=== PATIENT | male | born 1980 | race Caucasian/White ===

== ENCOUNTER 2020-10-15 15:54 | Observation (INO) | payer OTHER ==
[~2020-10-15] VITALS: Ht 203.2 cm; Wt 105.2 kg
--- NOTE | 2020-10-15 15:58 | NUR ---
FIRST EKG HAD A LOT OF ARTIFACT IN TRIAGE DUE TO PT BREATHING AND POSTIONING. WILL GET SECOND EKG IN ROOM WITH PT ON GURNEY
[2020-10-15] MEDS ORDERED: KETOROLAC 30 MG/1 ML IVPush ONE (16:30)
[2020-10-15] MEDS ORDERED: LORazepam 2 MG/ML, 1ML IVPush ONE (16:30)
[2020-10-15] MEDS ORDERED: ASPIRIN 81 MG TABLET CHEW PO ONE (16:30)
[2020-10-15] MEDS ORDERED: SODIUM CHLORIDE FLUSH 10ML SYR IVF ONE ×2 (16:30→19:30)
[2020-10-15 16:37] LABS: BASOPHILS % (AUTO) 1 % (0-1); EOSINOPHILS % (AUTO) 2 % (1-7); LYMPHOCYTES % (AUTO) 30 % (22-44); MD NO; MEAN CORPUSCULAR HEMOGLOBIN 32.2 pg (27.5-34.5); MEAN CORPUSCULAR HGB CONC 33.4 g/dL (33.2-36.2); MEAN PLATELET VOLUME 8.2 fL (7.4-10.4); MONOCYTES % (AUTO) 10 % (2-9); NEUTROPHILS % (AUTO) 58 % (42-75); PLATELET COUNT 373 x10^3/uL (130-400); RED BLOOD COUNT 5.43 x10^6/uL (4.38-5.82); RED CELL DISTRIBUTION WIDTH 13.7 % (9.4-14.8)
--- NOTE | 2020-10-15 16:40 | NUR ---
THIS IS A 40 YO M W/ C/O CP SINCE LAST NIGHT. PT REPORTS USING 1G KETAMINE YESTERDAY. NO CARDIAC HX. DENIES HOME MEDS. PIV STARTED, LABS DRAWN. PT CONNECTED TO ALL MONITORING. ADA PAGE.
--- NOTE | 2020-10-15 16:45 | NUR ---
PT STATING THAT "O2 MONITOR" IN HIS BODY IS READING LOW OXYGEN AND "HIGH NITROUS OXIDE" AND ALARM IS GOING OFF IN HIS BODY. UPON QUESTIONING FOR CLARIFICATION, PT DENIES CARBON MONIXIDE SENSOR IN HOME GOING OFF AND REPORTS NOT CHECKING O2 SAT AT HOME. ADA PAGE.
[2020-10-15] MEDS ORDERED: KETOROLAC 30 MG/1 ML ONE (16:47)
[2020-10-15 16:48] LABS: ALANINE AMINOTRANSFERASE 37 U/L (12-78); ALBUMIN 4.8 g/dL (3.4-5.0); ANION GAP 13 mmol/L (5-15); CALCIUM 9.5 mg/dL (8.5-10.1); CHLORIDE 107 mmol/L (98-107); CREATININE 1.29 mg/dL (0.7-1.3)
[2020-10-15] MEDS ORDERED: LORazepam 2 MG/ML, 1ML ONE (16:48)
[2020-10-15] MEDS ORDERED: ASPIRIN 81 MG TABLET CHEW ONE (16:48)
[2020-10-15 16:52] LABS: ALKALINE PHOSPHATASE 107 U/L (45-117); BILIRUBIN,TOTAL 0.5 mg/dL (0.2-1.0); TOTAL PROTEIN 8.9 g/dL (6.4-8.2); TROPONIN I < 0.015 ng/mL (0.000-0.045)
--- NOTE | 2020-10-15 16:54 | NUR ---
PT MEDICATED PER EMAR. RESTING ON GURNEY W/ CALL LIGHT IN REACH AND SIDE RAILS UPX2. [facility]. ADA PAGE.
[2020-10-15] MEDS ORDERED: MAALOX/HYOSCYAMINE/LIDOCAINE 45 ML BTL PO ONE (17:30)
[2020-10-15] MEDS ORDERED: MAALOX/HYOSCYAMINE/LIDOCAINE 45 ML BTL ONE (17:57)
--- NOTE | 2020-10-15 18:45 | NUR ---
PT AND S/O INQUIRING ABOUT DDDAVID LÓPEZ AT BEDSIDE TO SPEAK W/ PT. AGREE PT IS OK W/ DC. PIV REMOVED BY MOHAMUD LICENSING WORKER.
--- NOTE | 2020-10-15 19:03 | NUR ---
Patient given discharge instructions and they have confirmed that they understand the instructions. Patient ambulatory with steady gait.
--- NOTE | 2020-10-15 19:19 | NUR ---
WHILE SITTING AT DC DESK S/O REPORT PTS BECAME DIAPHORETIC AND INCREASED CHEST PRESSURE. PT MOVED BACK TO ROOM 21. EKG OBTAINED, PIV STARTED, LABS DRAWN. PT RESTING ON RNEY CONNECTED TO ALL MONITORING, VSADA Cordova. REPORT GIVEN TO GOLD RICHARDSON.
--- NOTE | 2020-10-15 19:28 | NUR ---
BS REPORT RECEIVED FROM DEBRA SOLIS. IV ESABLIHSED BY IRMA FOR CT.
[2020-10-15] MEDS ORDERED: ONDANSETRON 2MG/ML, 2ML IVPush ONE (19:30)
[2020-10-15] MEDS ORDERED: ONDANSETRON 2MG/ML, 2ML ONE (19:33)
[2020-10-15] MEDS ORDERED: MORPHINE SULFATE 4 MG/ML, 1ML ONE ×2 (19:33→20:40)
--- NOTE | 2020-10-15 19:40 | NUR ---
PT. TO CT VIA GURNEY; WILL MEDICATE ON ARRIVAL BACK TO ROOM.
[2020-10-15] MEDS ORDERED: OMNIPAQUE 350 MG/ML, 75ML BOTTLE ONE (19:45)
[2020-10-15] MEDS: MORPHINE SULFATE 4 MG/ML, 1ML IVPush PRN ×2 (19:50→20:44)
--- NOTE | 2020-10-15 20:37 | NUR ---
PT. REPORTS NO RELIEF FROM CP AFTER PAIN MEDS. PT. AWARE OF PLAN FOR ADMISSION. VS UPDATED. SAFETY MEASURES MAINTAINED.
--- NOTE | 2020-10-15 20:44 | NUR ---
PT. MEDICATED WITH 2ND DOSE OF MORPHINE FOR CONTINUED 03/19 CP. [facility] IN TO EVAL PT. FOR ADMISSION.
--- NOTE | 2020-10-15 21:16 | NUR ---
REPORT TO DEBRA LONDON. FLOOR READY FOR PT. TRANSPORT.
[2020-10-15] MEDS ORDERED: NITROGLYCERIN 0.4 MG BOTTLE (25 TABS) SL PRN (21:30)
[2020-10-15] MEDS ORDERED: POLYETHYLENE GLYCOL 17 GM PACKET PO PRN (21:30)
[2020-10-15] MEDS ORDERED: BISACODYL 10 MG SUPP PR PRN (21:30)
[2020-10-15] MEDS ORDERED: ACETAMINOPHEN 325 MG TABLET PO PRN (21:30)
[2020-10-15] MEDS ORDERED: ONDANSETRON ODT 4 MG PO PRN (21:30)
[2020-10-15 21:33] VITALS: BP 130/83
[2020-10-15] MEDS: SODIUM CHLORIDE FLUSH 10ML SYR IVF SCH (21:51)
[2020-10-15 22:51] LABS: TROPONIN I < 0.015 ng/mL (0.000-0.045)
[2020-10-16] VITALS (8 sets, daily range): BP systolic 122–150; BP diastolic 78–88
[2020-10-16] MEDS: morphine SULFATE 10 MG/ML, 1ML IVPush PRN ×4 (04:40→17:06)
[2020-10-16 05:03] LABS: CHOLESTEROL, TOTAL 195 mg/dL (140-239); HDL CHOL % 25 % (26-37); HDL CHOLESTEROL (DIRECT) 49 mg/dL (40-60); LDL CHOLESTEROL,CALCULATED 121 mg/dL (54-169); LDL/HDL RATIO 2.5 (0.5-3.0); TRIGLYCERIDES 127 mg/dL (50-200); TROPONIN I < 0.015 ng/mL (0.000-0.045); VLDL CHOLESTEROL 25 mg/dL (0-25)
[2020-10-16] MEDS: ASPIRIN 81 MG TABLET EC PO SCH (05:07)
[2020-10-16] MEDS: SODIUM CHLORIDE FLUSH 10ML SYR IVF SCH ×2 (08:17→20:08)
[2020-10-16] MEDS: SENNA/DOCUSATE TABLET PO SCH (08:21)
[2020-10-16] MEDS ORDERED: SODIUM CHLORIDE 0.9%, 500ML IVBOLUS ONE (09:30)
[2020-10-16 09:54] LABS: ALBUMIN 3.9 g/dL (3.4-5.0); ANION GAP 7 mmol/L (5-15); CHLORIDE 107 mmol/L (98-107)
[2020-10-16] MEDS: PANTOPRAZOLE 40MG TABLET PO SCH ×2 (10:41→20:04)
[2020-10-16 11:03] LABS: TROPONIN I < 0.015 ng/mL (0.000-0.045)
[2020-10-16 11:26] LABS: AMPHETAMINE SCREEN, URINE Negative (Negative); BARBITURATE SCREEN, URINE Negative (Negative); BENZODIAZEPINE SCREEN, URINE Negative (Negative); CANNABINOID SCREEN, URINE Positive (Negative); COCAINE SCREEN, URINE Negative (Negative); METHADONE SCREEN, URINE Negative (Negative); OPIATE SCREEN, URINE Positive (Negative)
[2020-10-16] MEDS ORDERED: REGADENOSON 0.4 MG/5 ML SYRINGE ONE (12:21)
[2020-10-16] MEDS: POTASSIUM CHLORIDE 10 MEQ in D5%-LACTATED RINGERS 1,000 ML IV SCH (14:15)
[2020-10-16] MEDS: OXYcodone IR 5MG TABLET PO PRN ×2 (14:21→20:07)
[2020-10-16] MEDS ORDERED: morphine SULFATE 10 MG/ML, 1ML IVPush PRN (18:00)
[2020-10-17] MEDS: POTASSIUM CHLORIDE 10 MEQ in D5%-LACTATED RINGERS 1,000 ML IV SCH ×2 (01:02→11:03)
[2020-10-17 02:11] VITALS: BP 127/77
[2020-10-17 05:01] LABS: BASOPHILS % (AUTO) 0 % (0-1); EOSINOPHILS % (AUTO) 3 % (1-7); LYMPHOCYTES % (AUTO) 26 % (22-44); MEAN CORPUSCULAR HEMOGLOBIN 32.4 pg (27.5-34.5); MEAN CORPUSCULAR HGB CONC 33.8 g/dL (33.2-36.2); MONOCYTES % (AUTO) 10 % (2-9); NEUTROPHILS % (AUTO) 60 % (42-75); PLATELET COUNT 317 x10^3/uL (130-400); RED BLOOD COUNT 4.76 x10^6/uL (4.38-5.82); RED CELL DISTRIBUTION WIDTH 13.6 % (9.4-14.8)
[2020-10-17 05:02] LABS: MD NO
[2020-10-17 05:13] LABS: CALCIUM 8.4 mg/dL (8.5-10.1); CHLORIDE 108 mmol/L (98-107)
[2020-10-17 05:17] LABS: ANION GAP 5 mmol/L (5-15); CREATININE 0.93 mg/dL (0.7-1.3)
[2020-10-17] MEDS: ASPIRIN 81 MG TABLET EC PO SCH (06:22)
[2020-10-17] MEDS: SENNA/DOCUSATE TABLET PO SCH (08:03)
[2020-10-17] MEDS: SODIUM CHLORIDE FLUSH 10ML SYR IVF SCH (08:03)
[2020-10-17] MEDS: PANTOPRAZOLE 40MG TABLET PO SCH (08:04)
[2020-10-17 08:08] VITALS: BP_SYST 123; BP_SYST 125; BP_SYST 134; BP_DIAS 74; BP_DIAS 78; BP_DIAS 90
[2020-10-17 12:38] VITALS: BP 149/88
== END 2020-10-17 15:43 | disposition home or self-care (01) ==
LOC: ED 19:19 → INTOOBSV 20:45 → EDIP 20:45 → 5SO 21:30 → INTOOBSV 10-17 12:00 → OBSVTOIN 10-17 12:00 → DCLOUNGE 10-17 15:35
PROVIDERS: ADMIT Emergency Medicine; ATTEND Internal Medicine
DX: R07.89 Other chest pain (principal); R42 Dizziness and giddiness; R00.1 Bradycardia, unspecified; F31.9 Bipolar disorder, unspecified; F41.8 Other specified anxiety disorders; D72.829 Elevated white blood cell count, unspecified; N28.9 Disorder of kidney and ureter, unspecified; F17.200 Nicotine dependence, unspecified, uncomplicated; F12.90 Cannabis use, unspecified, uncomplicated; Z79.899 Other long term (current) drug therapy
CPT/HCPCS: 36415; 71045; 71275; 78452; 80048; 80053; 80061; 80307; 82040; 82962; 83690; 83735; 84100; 84443; 84484; 85025; 93005; 93017; 93306; 93356; 96361; 96374; 96375; 96376; 99285; A9502; G0378; J1885; J2060; J2270; J2405; J2785; J3480; J7040; J7121; Q9967